=== PATIENT | male | born 1990 | race Caucasian/White ===

== ENCOUNTER 2018-06-30 17:09 | Emergency (ER) | payer MEDICAID ==
[~2018-06-30] VITALS: Ht 180.3 cm; Wt 63.4 kg
[2018-06-30 17:18] VITALS: BP 135/93
== END 2018-06-30 18:27 | disposition home or self-care (01) ==
LOC: ED 18:08
DX: S00.83XA Contusion of other part of head, initial encounter (principal); F17.200 Nicotine dependence, unspecified, uncomplicated; X58.XXXA Exposure to other specified factors, initial encounter; Y93.89 Activity, other specified; Y92.009 Unspecified place in unspecified non-institutional (private) residence as the place of occurrence of the external cause; Y99.8 Other external cause status
CPT/HCPCS: 70100; 99283; 99284